=== PATIENT | female | born 1995 | race Two or more races ===

== ENCOUNTER → 2020-03-07 15:07 | Outpatient (CLI) | payer OTHER | END | disposition home or self-care (01) | LOC: LAB 15:07 | PROVIDERS: ATTEND Emergency Medicine Pediatric Emergency Medicine | DX: Z20.828 Contact with and (suspected) exposure to other viral communicable diseases (principal) ==

== ENCOUNTER 2021-05-04 08:00 | Outpatient (CLI) | payer OTHER | END 2021-05-04 08:30 | disposition home or self-care (01) | LOC: PPH VACUNA 08:00 | PROVIDERS: ATTEND Emergency Medicine Pediatric Emergency Medicine | DX: Z23 Encounter for immunization (principal) ==

== ENCOUNTER 2021-06-23 15:19 | Emergency (ER) | payer OTHER ==
[~2021-06-23] VITALS: Ht 160 cm; Wt 68.0 kg
== END 2021-06-23 17:20 ==
LOC: ER 15:19
DX: B34.9 Viral infection, unspecified (principal); Z20.822 Contact with and (suspected) exposure to COVID-19

== ENCOUNTER 2021-07-13 08:00 | Outpatient (CLI) | payer OTHER | END 2021-07-13 08:30 | disposition home or self-care (01) | LOC: PPH VACUNA 08:00 | PROVIDERS: ATTEND Emergency Medicine Pediatric Emergency Medicine | DX: Z23 Encounter for immunization (principal) ==

== ENCOUNTER 2021-07-17 09:03 | Outpatient (CLI) | payer OTHER | END 2021-07-17 09:10 | disposition home or self-care (01) | LOC: LAB 09:03 | PROVIDERS: ATTEND Obstetrics & Gynecology | DX: N30.00 Acute cystitis without hematuria (principal); E55.9 Vitamin D deficiency, unspecified; E78.49 Other hyperlipidemia; D51.3 Other dietary vitamin B12 deficiency anemia ==

== ENCOUNTER 2021-12-09 09:32 | Outpatient (CLI) | payer OTHER | END 2021-12-09 09:33 | disposition home or self-care (01) | LOC: LAB 09:32 | PROVIDERS: ATTEND Obstetrics & Gynecology | DX: E03.9 Hypothyroidism, unspecified (principal) ==

== ENCOUNTER 2022-03-10 08:00 | Outpatient (CLI) | payer OTHER | END 2022-03-10 08:05 | disposition home or self-care (01) | LOC: PPH VACUNA 08:00 | PROVIDERS: ATTEND Emergency Medicine Pediatric Emergency Medicine | DX: Z23 Encounter for immunization (principal) ==

== ENCOUNTER 2022-04-01 07:23 | Outpatient (CLI) | payer OTHER | END 2022-04-01 07:24 | disposition home or self-care (01) | LOC: LAB 07:23 | PROVIDERS: ATTEND Family Medicine Geriatric Medicine | DX: D64.9 Anemia, unspecified (principal); R73.9 Hyperglycemia, unspecified; N39.0 Urinary tract infection, site not specified; E03.8 Other specified hypothyroidism; E11.9 Type 2 diabetes mellitus without complications; E78.2 Mixed hyperlipidemia; E55.9 Vitamin D deficiency, unspecified ==

== ENCOUNTER 2022-11-24 08:22 | Outpatient (CLI) | payer OTHER | END 2022-11-24 08:29 | disposition home or self-care (01) | LOC: LAB 08:22 | PROVIDERS: ATTEND Obstetrics & Gynecology | DX: E55.9 Vitamin D deficiency, unspecified (principal); E78.5 Hyperlipidemia, unspecified; D51.3 Other dietary vitamin B12 deficiency anemia; N83.299 Other ovarian cyst, unspecified side; N30.00 Acute cystitis without hematuria ==

== ENCOUNTER 2022-12-06 06:53 | Emergency (ER) | payer OTHER ==
[~2022-12-06] VITALS: Ht 160 cm; Wt 72.6 kg
== END 2022-12-06 08:45 | disposition home or self-care (01) ==
LOC: ER 06:53
DX: N39.0 Urinary tract infection, site not specified (principal); J06.9 Acute upper respiratory infection, unspecified; Z20.822 Contact with and (suspected) exposure to COVID-19

== ENCOUNTER → 2023-08-03 07:15 | Outpatient (CLI) | payer OTHER ==
[2023-08-03 08:38] LABS: ALBUMIN 4.3 gm/dL (3.4-5.0); BILIRUBIN TOTAL 0.47 mg/dL (0.3-1.2); CALCIUM 9.6 mg/dL (8.5-10.1); CHOL HDL RATIO 3.2 (0-5.0); CREATININE SERUM 0.75 mg/dL (0.55-1.02); GFR 92.69; GLOBULINA 3.5 G/DL (2.4-3.5); POTASSIUM 3.82 mEq/L (3.5-5.1); T4 FREE 1.27 NG/ML (0.76-1.46); TOTAL PROTEIN 7.8 gm/dL (6.4-8.2); TSH 4.6 uIU/mL (0.358-3.74)
== END | disposition home or self-care (01) ==
LOC: LAB 07:15
PROVIDERS: ATTEND Internal Medicine Endocrinology, Diabetes & Metabolism
DX: E03.8 Other specified hypothyroidism (principal); E78.5 Hyperlipidemia, unspecified; E11.65 Type 2 diabetes mellitus with hyperglycemia

== ENCOUNTER 2023-12-30 06:39 | Outpatient (CLI) | payer OTHER ==
[2023-12-30 09:03] LABS: T4 TOTAL 9.02 UG/DL (4.8-13.9); TSH 3.9 uIU/mL (0.358-3.74)
== END 2023-12-30 06:44 | disposition home or self-care (01) ==
LOC: LAB 06:39
PROVIDERS: ATTEND General Practice
DX: E03.9 Hypothyroidism, unspecified (principal)